=== PATIENT | female | born 1990 | race Two or more races ===

== ENCOUNTER 2024-03-25 09:44 | Inpatient (IN) | payer OTHER ==
[2024-03-25 10:02] LABS: BASOPHILS ABSOLUTE AUTO 0.03 K/uL (0.00-0.20); BASOPHILS PERCENT AUTO 0.2 % (0.0-1.0); EOSINOPHILS ABSOLUTE AUTO 0.01 K/uL (0.00-0.45); EOSINOPHILS PERCENT AUTO 0.1 % (0.0-6.0); HEMATOCRIT 40.4 % (37.0-47.0); HEMOGLOBIN 13.2 g/dL (12.0-16.0); IMMATURE GRAN ABSOLUTE AUTO 0.08 K/uL (0.00-0.05); IMMATURE GRAN PERCENT AUTO 0.5 % (0.0-0.4); LYMPHOCYTES ABSOLUTE AUTO 1.38 K/uL (1.00-4.80); LYMPHOCYTES PERCENT AUTO 7.9 % (24.0-44.0); MEAN CORPUSCULAR HGB CONC 32.7 g/dL (32.0-36.0); MEAN CORPUSCULAR VOLUME 85.6 fL (83.0-99.0); MEAN PLATELET VOLUME 10.5 fL (9.4-12.3); MONOCYTES PERCENT AUTO 8.6 % (0.0-8.0); NEUTROPHILS ABSOLUTE AUTO 14.52 K/uL (1.80-7.70); NEUTROPHILS PERCENT AUTO 82.7 % (41.0-71.0); PLATELET COUNT,PLT 267 K/uL (150-400); RED BLOOD CELL COUNT 4.72 M/uL (4.10-5.30); WHITE BLOOD CELL COUNT,WBC 17.52 K/uL (3.9-11.3)
[2024-03-25] MEDS: Sodium Chloride 0.9% 1,000 ML IV ONE ×2 (10:07→13:11)
[2024-03-25] MEDS: Ondansetron 4 MG/2 ML SDV IVPUSH ONE (10:07)
[2024-03-25 10:14] LABS: APPEARANCE,URINE CLOUDY; BILIRUBIN,URINE NEGATIVE (NEGATIVE); COLOR,URINE YELLOW; GLUCOSE,URINE NEGATIVE (NEGATIVE); KETONES,URINE 40 mg/dL (NEGATIVE); LEUKOCYTE ESTERASE,URINE TRACE (NEGATIVE); NITRITE,URINE NEGATIVE (NEGATIVE); OCCULT BLOOD,URINE MODERATE (NEGATIVE); PROTEIN,URINE 100 mg/dL (NEGATIVE); UROBILINOGEN,URINE 0.2 EU/dL (<2.0)
[2024-03-25 10:23] LABS: EPITHELIAL CELLS,URINE MANY (NONE-FEW); WBC,URINE 25-30 (0-5/HPF)
[2024-03-25 10:24] LABS: BACTERIA,URINE 2+ (NEGATIVE)
[2024-03-25 10:24] LABS: A/G RATIO 0.8 (0.9-1.6); ALBUMIN 3.9 g/dL (3.4-5.0); BILIRUBIN TOTAL 0.4 mg/dL (0.2-1.0); CALCIUM 9.7 mg/dL (8.5-10.1); CARBON DIOXIDE,CO2 24.2 mmol/L (21.0-32.0); EST CRCL DRUG DOSING (CG) 70.39 mL/min; POTASSIUM,K 3.7 mmol/L (3.5-5.1); PROTEIN TOTAL,TP 8.7 g/dL (6.4-8.2)
[2024-03-25 10:51] LABS: CORONAVIRUS COVID-19 NAA NEGATIVE (NEGATIVE); INFLUENZA A NAA NEGATIVE (NEGATIVE); INFLUENZA B NAA NEGATIVE (NEGATIVE)
[2024-03-25] MEDS: Iopamidol 755 MG/ML 500 ML Multipack Bottle IVPUSH STA (11:06)
[2024-03-25] MEDS: Ketorolac 30 MG/ML SDV IVPUSH ONE (11:32)
[2024-03-25] MEDS: cefTRIAXone 1 GM in Sodium Chloride 0.9% 50 ML IV ONE (11:32)
[2024-03-25] MEDS: Acetaminophen 500 MG Tab PO ONE (11:57)
[2024-03-25] MEDS ORDERED: Naloxone 0.4 MG/ML SDV IVPUSH PRN (14:14)
[2024-03-25] MEDS ORDERED: Ketorolac 30 MG/ML SDV IV PRN (14:14)
[2024-03-25] MEDS ORDERED: Melatonin 3 MG Tab PO PRN (14:14)
[2024-03-25] MEDS ORDERED: Polyethylene Glycol 3350 Powder 17 GM Packet PO PRN (14:14)
[2024-03-25] MEDS ORDERED: Acetaminophen 650 MG Supp RECTAL PRN (14:14)
[2024-03-25 14:48] LABS: HEMOGLOBIN A1C 5.2 %
[2024-03-25 15:15] LABS: LACTIC ACID 1.1 mmol/L (0.4-2.0)
[2024-03-25] MEDS: Sodium Chloride 0.9% 1,000 ML IV SCH ×2 (15:19→22:32)
[2024-03-25] MEDS: cefTRIAXone 1 GM in Sodium Chloride 0.9% 50 ML IV STA (15:26)
[2024-03-25] MEDS: Enoxaparin 40 MG/0.4 ML Syringe SUBCUT SCH (15:45)
[2024-03-25] MEDS ORDERED: Sodium Chloride 0.9% 1,000 ML IV SCH (16:00)
[2024-03-25] MEDS: Morphine 2 MG/ML SYRINGE IVPUSH PRN (19:10)
[2024-03-25] MEDS: Acetaminophen 325 MG Tab PO PRN (19:50)
[2024-03-25] MEDS: Ibuprofen 400 MG Tab PO ONE (22:30)
[2024-03-25] MEDS: Acetaminophen 325 MG Tab PO ONE (22:30)
[2024-03-26 05:33] LABS: BASOPHILS ABSOLUTE AUTO 0.03 K/uL (0.00-0.20); BASOPHILS PERCENT AUTO 0.2 % (0.0-1.0); EOSINOPHILS ABSOLUTE AUTO 0.02 K/uL (0.00-0.45); EOSINOPHILS PERCENT AUTO 0.1 % (0.0-6.0); HEMATOCRIT 38.2 % (37.0-47.0); IMMATURE GRAN ABSOLUTE AUTO 0.07 K/uL (0.00-0.05); IMMATURE GRAN PERCENT AUTO 0.5 % (0.0-0.4); LYMPHOCYTES PERCENT AUTO 6.7 % (24.0-44.0); MEAN CORPUSCULAR HEMOGLOBIN 27.5 pg (28.0-32.0); MEAN CORPUSCULAR HGB CONC 31.4 g/dL (32.0-36.0); MEAN CORPUSCULAR VOLUME 87.4 fL (83.0-99.0); MEAN PLATELET VOLUME 10.7 fL (9.4-12.3); MONOCYTES ABSOLUTE AUTO 1.32 K/uL (0.00-0.80); MONOCYTES PERCENT AUTO 8.8 % (0.0-8.0); NEUTROPHILS PERCENT AUTO 83.7 % (41.0-71.0); PLATELET COUNT,PLT 230 K/uL (150-400); RED BLOOD CELL COUNT 4.37 M/uL (4.10-5.30); WHITE BLOOD CELL COUNT,WBC 14.94 K/uL (3.9-11.3)
[2024-03-26 05:53] LABS: CALCIUM 8.8 mg/dL (8.5-10.1); CARBON DIOXIDE,CO2 23.3 mmol/L (21.0-32.0); CREATININE 0.9 mg/dL (0.6-1.0); EST CRCL DRUG DOSING (CG) 78.21 mL/min; POTASSIUM,K 3.8 mmol/L (3.5-5.1)
[2024-03-26] MEDS: cefTRIAXone 2 GM in Sodium Chloride 0.9% 50 ML IV SCH (09:22)
[2024-03-26] MEDS: Ondansetron 4 MG/2 ML SDV IVPUSH PRN (09:25)
[2024-03-26] MEDS: Promethazine 25 MG/ML SDV IM PRN (11:01)
[2024-03-26] MEDS: Ketorolac 30 MG/ML SDV IVPUSH PRN (11:01)
[2024-03-26] MEDS: Sodium Chloride 0.9% 1,000 ML IV SCH (14:50)
[2024-03-27 05:46] LABS: HEMATOCRIT 29.2 % (37.0-47.0); HEMOGLOBIN 9.4 g/dL (12.0-16.0); MEAN CORPUSCULAR HEMOGLOBIN 27.2 pg (28.0-32.0); MEAN CORPUSCULAR HGB CONC 32.2 g/dL (32.0-36.0); MEAN CORPUSCULAR VOLUME 84.4 fL (83.0-99.0); MEAN PLATELET VOLUME 10.5 fL (9.4-12.3); PLATELET COUNT,PLT 221 K/uL (150-400); RED BLOOD CELL COUNT 3.46 M/uL (4.10-5.30); WHITE BLOOD CELL COUNT,WBC 9.78 K/uL (3.9-11.3)
[2024-03-27 06:02] LABS: CARBON DIOXIDE,CO2 24.2 mmol/L (21.0-32.0); CREATININE 0.7 mg/dL (0.6-1.0); EST CRCL DRUG DOSING (CG) 100.55 mL/min; POTASSIUM,K 3.2 mmol/L (3.5-5.1)
[2024-03-27 06:36] LABS: LYMPHOCYTES ABSOLUTE MAN 1.86 K/uL (1.00-4.80); LYMPHOCYTES PERCENT MAN 19 % (24-44); MONOCYTES ABSOLUTE MAN 0.78 K/uL (0.00-0.80); MONOCYTES PERCENT MAN 8 % (0-8); SEG NEUTROPHILS ABSOLUTE MAN 7.14 K/uL (1.80-7.70); SEG NEUTROPHILS PERCENT MAN 73 % (41-71)
[2024-03-27] MEDS: Potassium Chloride 10 MEQ in Premix Bag 1 BAG IV SCH (08:38)
[2024-03-27] MEDS: Magnesium Sulfate/Water 2 GM in Premix Bag 1 BAG IV ONE (14:57)
[2024-03-28 05:38] LABS: BASOPHILS ABSOLUTE AUTO 0.03 K/uL (0.00-0.20); BASOPHILS PERCENT AUTO 0.5 % (0.0-1.0); EOSINOPHILS ABSOLUTE AUTO 0.02 K/uL (0.00-0.45); EOSINOPHILS PERCENT AUTO 0.3 % (0.0-6.0); HEMATOCRIT 30.4 % (37.0-47.0); HEMOGLOBIN 9.9 g/dL (12.0-16.0); IMMATURE GRAN ABSOLUTE AUTO 0.03 K/uL (0.00-0.05); IMMATURE GRAN PERCENT AUTO 0.5 % (0.0-0.4); LYMPHOCYTES ABSOLUTE AUTO 1.56 K/uL (1.00-4.80); LYMPHOCYTES PERCENT AUTO 24.8 % (24.0-44.0); MEAN CORPUSCULAR HEMOGLOBIN 27.3 pg (28.0-32.0); MEAN CORPUSCULAR HGB CONC 32.6 g/dL (32.0-36.0); MONOCYTES ABSOLUTE AUTO 1.07 K/uL (0.00-0.80); NEUTROPHILS ABSOLUTE AUTO 3.57 K/uL (1.80-7.70); NEUTROPHILS PERCENT AUTO 56.9 % (41.0-71.0); PLATELET COUNT,PLT 273 K/uL (150-400); RED BLOOD CELL COUNT 3.62 M/uL (4.10-5.30); WHITE BLOOD CELL COUNT,WBC 6.28 K/uL (3.9-11.3)
[2024-03-28 06:03] LABS: CALCIUM 8.4 mg/dL (8.5-10.1); CARBON DIOXIDE,CO2 24.1 mmol/L (21.0-32.0); CREATININE 0.7 mg/dL (0.6-1.0); EST CRCL DRUG DOSING (CG) 100.55 mL/min; POTASSIUM,K 3.3 mmol/L (3.5-5.1)
[2024-03-28] MEDS: Potassium Chloride 20 MEQ Tab.ER PO ONE (08:37)
== END 2024-03-28 12:24 | disposition home or self-care (01) | DRG 690 ==
LOC: MW.ED 09:44 → MW.MS 13:47
PROVIDERS: ADMIT Family Medicine; ATTEND Family Medicine
DX: N10 Acute pyelonephritis (principal)
CPT/HCPCS: 0240U; 36415; 74177; 74177-26; 80048; 80053; 81001; 81025; 83036; 83605; 83690; 83735; 85025; 87040; 87086; 96361; 96365; 96375; 99222; 99231; 99232; 99238; 99285; 99285-25; A9270-GY; J0696; J1885; J2270; J2405; J2550; J3475; J3480; J3490; J7030; Q9967